=== PATIENT | female | born 1985 | race African-American/Black ===

== ENCOUNTER 2016-06-16 20:29 | Emergency (ER) | payer MEDICAID, OTHER ==
[~2016-06-16] VITALS: Ht 167.6 cm; Wt 56.7 kg
[2016-06-16 20:30] VITALS: BP 116/58; PULSE 80; RESP 18; TEMP 99.3; O2SAT 99
--- NOTE | 2016-06-16 21:08 | NUR ---
Placed in room 07 . Placed on nurse monitoring, blood pressure machine and pulse oximeter. To gown for exam. Side rails up. Report given to LAYA Almanza.
--- NOTE | 2016-06-16 21:16 | NUR ---
Patient to ER C/O lower abdominopelvic area pain and cramping all day with vaginal bleeding. Patient states that she works in a [employer] and she has been lifting heavy items. States she saturates 1 pad / hour and the drainage is very watery. AAOx4, unlabored rbeathing, no signs of acute distress.
--- NOTE | 2016-06-16 21:29 | NUR ---
ER MD Manrique at bedside for evaluation
--- NOTE | 2016-06-16 21:41 | NUR ---
Pelvic exam performed by ER MD Manrique with Cami ASIF at bedside for entire examination. Product of conception removed from vaginal canal and sent to pathology. Blood succtioned amount 200ml. Patient tolerated procedure well. Patient assisted to position of comfort after examination.
[2016-06-16] MEDS ORDERED: NACL 0.9% 1,000 ML IV ONE (21:47)
--- NOTE | 2016-06-16 22:10 | NUR ---
# 20 gauge angiocath placed to left ac. Use of asceptic technique. Opsite placed over site. Blood return noted. Blood for lab drawn from site. Flushed with 10 cc of normal saline. No evidence of infiltration noted. Patient tolerated well.
[2016-06-16] MEDS ORDERED: KETOROLAC TROMETHAMINE 15 MG VIAL IVP ONE (22:15)
[2016-06-16 22:32] LABS: BILIRUBIN,URINE NEGATIVE (NEGATIVE); BLOOD, URINE 3+ (NEGATIVE); CLARITY/URINE HAZY (CLEAR); COLOR,URINE YELLOW (YELLOW); GLUCOSE,URINE NEGATIVE (NEGATIVE); KETONES,URINE NEGATIVE (NEGATIVE); LEUKOCYTE ESTERASE ,URINE NEGATIVE (NEGATIVE); NITRITE, URINE NEGATIVE (NEGATIVE); PH,URINE 7.5 (5.0-8.0); PROTEIN URINE NEGATIVE (NEGATIVE); UROBILINOGEN,URINE 0.2 (0.2-1.0)
[2016-06-16 22:41] LABS: BASOPHILS % (AUTO) 0.3 % (0.0-2.0); EOSINOPHILS % (AUTO) 0.3 % (0.0-4.0); HEMATOCRIT 35.8 % (36-48); HEMOGLOBIN 12.2 g/dL (12.0-16.0); LYMPHOCYTES # (AUTO) 1.6 K/uL (1.0-5.5); LYMPHOCYTES % (AUTO) 10.4 % (20.5-51.5); MEAN CORPUSCULAR HEMOGLOBIN 27 pg (27-31); MEAN CORPUSCULAR HGB CONC 34 % (32-36); MEAN CORPUSCULAR VOLUME 80 fL (79.0-98.0); MONOCYTES # (AUTO) 1.1 K/uL (0.0-1.0); MONOCYTES % (AUTO) 7.2 % (1.7-9.3); NEUTROPHILS # (AUTO) 12.9 K/uL (1.8-7.7); NEUTROPHILS % (AUTO) 81.8 % (40.0-70.0); PLATELET COUNT (AUTO) 162 K/uL (130-430); RED BLOOD CELL COUNT(AUTO) 4.47 MIL/uL (4.2-6.2); RED CELL DISTRIBUTION WIDTH 18.1 % (9.0-15.0); WHITE BLOOD COUNT (AUTO) 15.6 K/uL (4.8-10.8)
--- NOTE | 2016-06-16 22:42 | NUR ---
Patient off the unit via wheelchair for U/S
[2016-06-16 22:47] LABS: CALCIUM 8.8 mg/dL (8.4-11.0); CREATININE 0.77 mg/dL (0.55-1.30)
[2016-06-16 22:47] LABS: BACTERIA,URINE FEW /HPF (None Seen); RBC,URINE >100 /HPF (0-3); WBC,URINE 0-3 /HPF (0-3)
--- NOTE | 2016-06-16 23:24 | NUR ---
Patient states she feels much better, vaginal bleeding continues. Patient educated on home care.
[2016-06-17 00:38] VITALS: BP 114/52; PULSE 74; RESP 18; TEMP 98.2
--- NOTE | 2016-06-17 00:38 | NUR ---
Patient given written and verbal discharge instructions and verbalizes understanding. ER MD Manrique discussed with patient the results and treatment provided. Patient in stable condition. ID arm band removed. IV catheter removed intact and dressing applied, no active bleeding. Patient educated on pain management and to follow up with PMD. Pain Scale 0/10. Opportunity for questions provided and answered.
[2016-06-29 15:44] VITALS: O2SAT 99
== END 2016-06-17 00:38 | disposition home or self-care (01) ==
LOC: SED 20:29
DX: O46.91 Antepartum hemorrhage, unspecified, first trimester (principal); Z3A.01 Less than 8 weeks gestation of pregnancy
CPT/HCPCS: 36415; 76856; 80048; 81000; 81025; 84702; 85025; 86900; 86901; 88305; 96361; 96374; 99285; J1885; J7030

== ENCOUNTER 2016-06-22 11:39 | Inpatient (IN) | payer MEDICAID ==
[~2016-06-22] VITALS: Ht 167.6 cm; Wt 56.7 kg
[2016-06-22 12:02] VITALS: BP_SYST 112
--- NOTE | 2016-06-22 12:08 | NUR ---
Pt placed to ER waiting room in stable condition.
--- NOTE | 2016-06-22 12:50 | NUR ---
Pt in US from wait room.
--- NOTE | 2016-06-22 12:56 | NUR ---
Patient to ER bed 8 to gown for evaluation. Side rails up.Assumed care.
--- NOTE | 2016-06-22 12:57 | NUR ---
ER at bedside examining patient.
--- NOTE | 2016-06-22 13:00 | NUR ---
Pt presents to ED c/o pelvic pain w/ vag bleeding s/p DNC on 06/16/16.Pt h/o A3, Pt denies other med hx.
--- NOTE | 2016-06-22 13:26 | NUR ---
Pt to be admitted.
[2016-06-22] MEDS ORDERED: KETOROLAC TROMETHAMINE 30 MG VIAL IVP ONE (13:30)
[2016-06-22] MEDS ORDERED: NACL 0.9% 1,000 ML IV ONE (13:30)
[2016-06-22 13:37] LABS: BASOPHILS % (AUTO) 0.6 % (0.0-2.0); EOSINOPHILS # (AUTO) 0.1 K/uL (0.0-0.4); EOSINOPHILS % (AUTO) 1.8 % (0.0-4.0); HEMATOCRIT 34.6 % (36-48); HEMOGLOBIN 11.5 g/dL (12.0-16.0); LYMPHOCYTES # (AUTO) 1.9 K/uL (1.0-5.5); LYMPHOCYTES % (AUTO) 24.1 % (20.5-51.5); MEAN CORPUSCULAR HEMOGLOBIN 27 pg (27-31); MEAN CORPUSCULAR HGB CONC 33 % (32-36); MEAN CORPUSCULAR VOLUME 82 fL (79.0-98.0); MONOCYTES # (AUTO) 0.6 K/uL (0.0-1.0); MONOCYTES % (AUTO) 7.6 % (1.7-9.3); NEUTROPHILS # (AUTO) 5.1 K/uL (1.8-7.7); NEUTROPHILS % (AUTO) 65.9 % (40.0-70.0); PLATELET COUNT (AUTO) 164 K/uL (130-430); WHITE BLOOD COUNT (AUTO) 7.7 K/uL (4.8-10.8)
[2016-06-22 13:38] LABS: BILIRUBIN,URINE NEGATIVE (NEGATIVE); BLOOD, URINE 3+ (NEGATIVE); CLARITY/URINE CLEAR (CLEAR); COLOR,URINE YELLOW (YELLOW); GLUCOSE,URINE NEGATIVE (NEGATIVE); KETONES,URINE NEGATIVE (NEGATIVE); LEUKOCYTE ESTERASE ,URINE NEGATIVE (NEGATIVE); NITRITE, URINE NEGATIVE (NEGATIVE); PH,URINE 6.5 (5.0-8.0); PROTEIN URINE NEGATIVE (NEGATIVE); UROBILINOGEN,URINE 0.2 (0.2-1.0)
[2016-06-22 13:43] LABS: CALCIUM 8.5 mg/dL (8.4-11.0); CREATININE 0.65 mg/dL (0.55-1.30); POTASSIUM 3.8 mmol/L (3.5-5.1)
[2016-06-22 13:47] LABS: PROTHROMBIN TIME 10.8 SECS (9.5-12.5)
--- NOTE | 2016-06-22 13:50 | NUR ---
Pt tolerated IV start 18G RAC and medication.
[2016-06-22 13:58] LABS: BACTERIA,URINE FEW /HPF (None Seen); WBC,URINE 0-3 /HPF (0-3)
[2016-06-22 13:59] LABS: MUCUS,URINE 1+ /LPF (None Seen)
[2016-06-22] MEDS ORDERED: PROPOFOL 200MG/ 20ML VIAL (DIPRIVAN) IV ONE (14:00)
[2016-06-22] MEDS ORDERED: ONDANSETRON HCL 4 MG/2 ML VIAL ONE (14:00)
[2016-06-22] MEDS ORDERED: fentaNYL CITRATE/PF 100 MCG/2 ML AMP ONE (14:00)
[2016-06-22] MEDS ORDERED: OXYTOCIN 10 UNIT/ML VIAL ONE (14:00)
[2016-06-22] MEDS ORDERED: MEPERIDINE HCL/PF 100 MG/ML AMP ONE (14:00)
[2016-06-22] MEDS ORDERED: MIDAZOLAM HCL 5 MG/5 ML VIAL ONE (14:00)
[2016-06-22] MEDS ORDERED: SEVOFLURANE 15 MIN GAS INH ONE (14:00)
[2016-06-22 14:08] LABS: ALBUMIN 3.6 g/dL (3.4-4.8); TOTAL BILIRUBIN 0.5 mg/dL (0.0-1.0)
--- NOTE | 2016-06-22 14:30 | NUR ---
Pt ambulated to restroom w/o assist. Pt tolerated well. Pain resolving
--- NOTE | 2016-06-22 15:10 | NUR ---
Assumed patient care. patient in ER C/O continuous bleeding. AAOx4, unlabored breathing, no signs of acute distress. Vaginal bleeding post passing POC friday, states saturating one pad in couple hours.
--- NOTE | 2016-06-22 16:28 | NUR ---
Patient will be admitted to care of DR LEONEL Keller. Admitted to OR-SURGEY unit. Will go to room OR. Belongings list completed. Summary report printed. Report given to RN.
--- NOTE | 2016-06-22 16:31 | NUR ---
Awaiting for OR crew to pickle sorter patient for surgey
--- NOTE | 2016-06-22 16:42 | NUR ---
ER MD Villagomez at bedside discussing plan of care with patient
--- NOTE | 2016-06-22 17:07 | NUR ---
Admission MD changed to Dr MAYA.
[2016-06-22] MEDS ORDERED: MORPHINE 4 MG/ML INJ. SYRINGE IVP PRN (17:15)
--- NOTE | 2016-06-22 17:15 | NUR ---
Patient will be admitted to care of DR MAYA. Admitted to MS unit. Will go to room 108A. Belongings list completed. Summary report printed. Report given to LAYA.
--- NOTE | 2016-06-22 17:22 | NUR ---
Transfer to [facility]. IV present no sign or symptom of infiltration.
--- NOTE | 2016-06-22 17:35 | NUR ---
ADMISSION NOTE Received patient from ER via gurney. Patient admitted with diagnosis of incomplete . Patient is awake, alert, oriented X 4. Patient oriented to hospital room, call light, toileting, pain management and safety-teach back done. Patient informed that andrés will be her nurse and that their room number is 108-c. Personal belongings checked and Belongings List documented. Call light within reach.
[2016-06-22 17:46] VITALS: BP_SYST 129
--- NOTE | 2016-06-22 19:01 | NUR ---
Closing Note: Pt sitting semi-fowlers in bed. Pt denies pain at this time. Pt verbalizes vaginal bleeding with small clots at this time. IV intact and infusing fluids well to RUE. Call light in reach. No other needs noted at this time. Pt remains NPO and verbalizes understanding of need to remain NPO for possible procedure today. Endorse plan of care to NOC RN.
[2016-06-22 19:25] VITALS: BP_SYST 121
--- NOTE | 2016-06-22 19:25 | NUR ---
MD Matthews at bedside/PACU MD Matthews at bedside with pt at this time. Per MD Matthews, he requested that I enter a consent order for D&C. No consent signed. Pt taken to PACU by ADMINISTRATIVE CLERK and MD Matthews. Pt in stable condition at this time. VSS. IV intact. Will await pt's return from PACU.
[2016-06-22] MEDS ORDERED: D5LR 1,000 ML IV SCH (19:45)
[2016-06-22] MEDS ORDERED: LR 1,000 ML IV SCH (20:05)
[2016-06-22] MEDS ORDERED: MEPERIDINE HCL/PF 25 MG/ML DISP.SYRIN IVP PRN ×2 (20:15)
[2016-06-22] MEDS ORDERED: HYDROmorphone 1 MG INJ. 1 MG/ML AMPUL IVP PRN (20:15)
[2016-06-22] MEDS ORDERED: ONDANSETRON HCL 4 MG/2 ML VIAL IVP PRN (20:15)
[2016-06-22] MEDS ORDERED: KETOROLAC TROMETHAMINE 30 MG VIAL IVP PRN (20:15)
[2016-06-22] MEDS ORDERED: HYDROmorphone 2 MG/ML VIAL IVP PRN ×2 (20:15)
--- NOTE | 2016-06-22 21:01 | NUR ---
Received report from PACU Nurse Received report from PACU Nurse Nicole. Will wait for patient to come back.
--- NOTE | 2016-06-22 21:08 | NUR ---
Pt back from PACU Pt back from PACU at this time, A/Ox4 in stable condition. Pt is S/P D&C, light vaginal bleeding noted on milton pad. Pt denies any pain or abdominal pain. IV intact. VSS. Pt educated on Post op vital signs, and new orders discussed with pt. Informed pt that she is able to go home once she is stable, and pt stated that her is currently working and wont be able to pick her up unitl 0300 am tomorrow morning. Pain management education given, pt asked to call nurse if she needs pain management. All needs met at this time. Pt requested food, food provided (sandwich, jello and juice). Will continue to monitor.
[2016-06-22] MEDS ORDERED: OXYCODONE/ACETAMINOPHEN 5-325 TABLET PO PRN (21:30)
--- NOTE | 2016-06-22 23:15 | NUR ---
PAIN MEDICATION NOTE SCANNED MEDICATION, BUT DID NOT SAVE, WILL NOT LET IT HAPPEN AGAIN.
[2016-06-22 23:51] VITALS: BP_SYST 98
--- NOTE | 2016-06-23 00:30 | NUR ---
PATIENT RESTING: Patient resting quietly. No acute distress noted. Vital signs within normal range. Call light in reach. Will continue to monitor.
[2016-06-23 02:43] VITALS: BP_SYST 98
[2016-06-23] MEDS ORDERED: OXYC-130 PO (02:48)
--- NOTE | 2016-06-23 03:00 | NUR ---
Rounds Pt resting at this time, easily arousable. Pt stated will be picking her up in about an hour. Discharge paperwork pending. Pt denies any pain or discomfort at this time. Call light in hand. Will continue to monitor.
[2016-06-23 03:51] VITALS: BP_SYST 98
--- NOTE | 2016-06-23 04:52 | NUR ---
D/C Patient Patient given medication reconciliation form and transition care instructions. Informed patient nothing in vagina per MD instructions, and MD Absi contact information provided and discussed with pt. Exit Care provided. Patient verbalized understanding. MD discussed with patient the results and treatment provided. Ambulatory with steady gait for discharge to home. Patient in stable condition, ID band removed. IV catheter removed, intact and dressing applied, no active bleeding. Rx of Percocet 5-325mg ordered and prescription given. Patient educated on pain management. All belongings sent with patient.
== END 2016-06-23 04:55 | disposition home or self-care (01) | DRG 544 ==
LOC: SED 11:39 → SDS 16:29 → SMU 17:08
PROC: 10D17ZZ Extraction of Products of Conception, Retained, Via Natural or Artificial Opening (ICD-10-PCS; principal; 2016-06-22 20:00)
DX: O03.4 Incomplete spontaneous abortion without complication (principal); Z90.49 Acquired absence of other specified parts of digestive tract; Z3A.01 Less than 8 weeks gestation of pregnancy
CPT/HCPCS: 36415; 76830-TC; 76857; 80053; 81000-TC; 84702-TC; 85025; 85610-TC; 85730-TC; 86886; 86900; 86901; 87081; 88305; 96361; 96374; 99285; J1885; J2175; J2250; J2270; J2405; J2590; J2704; J3010; J7030; J7120

== ENCOUNTER 2017-07-09 23:57 | Emergency (ER) | payer MEDICAID ==
[~2017-07-09] VITALS: Ht 167.6 cm; Wt 53.1 kg
[~2017-07-09 23:57] MED LIST: OXYC-130 PO
[2017-07-10 00:05] VITALS: BP_SYST 115
[2017-07-10 00:49] VITALS: BP_SYST 118
== END 2017-07-10 00:49 | disposition home or self-care (01) ==
LOC: SED 23:57
DX: J40 Bronchitis, not specified as acute or chronic (principal); E03.9 Hypothyroidism, unspecified; Z88.5 Allergy status to narcotic agent; Z88.6 Allergy status to analgesic agent
CPT/HCPCS: 71046-TC; 81025; 99284

== ENCOUNTER 2017-09-27 03:31 | Emergency (ER) | payer SELFPAY ==
[~2017-09-27] VITALS: Ht 165.1 cm; Wt 49.9 kg
[2017-09-27 03:35] VITALS: BP_SYST 115
--- NOTE | 2017-09-27 03:35 | NUR ---
Patient to ER bed 7 to gown for evaluation. Side rails up.
--- NOTE | 2017-09-27 03:36 | NUR ---
Patient presented to ED c/o of nausea and lightheadedness. Pt A/O x 4. Pt VSS. Pt states she found out she was a couple of days ago. Pt denies fever. No SOB or acute distress noted. Will continue to monitor.
[2017-09-27 04:33] LABS: BILIRUBIN,URINE NEGATIVE (NEGATIVE); BLOOD, URINE NEGATIVE (NEGATIVE); CLARITY/URINE CLEAR (CLEAR); COLOR,URINE YELLOW (YELLOW); GLUCOSE,URINE NEGATIVE (NEGATIVE); KETONES,URINE NEGATIVE (NEGATIVE); LEUKOCYTE ESTERASE ,URINE NEGATIVE (NEGATIVE); NITRITE, URINE NEGATIVE (NEGATIVE); PH,URINE 5.5 (5.0-8.0); PROTEIN URINE NEGATIVE (NEGATIVE); UROBILINOGEN,URINE 0.2 (0.2-1.0)
[2017-09-27] MEDS ORDERED: ONDANSETRON 4 MG ODT TAB PO ONE (04:45)
--- NOTE | 2017-09-27 04:53 | NUR ---
ER Dr. Carrillo at bedside examining patient.
[2017-09-27 05:08] VITALS: BP_SYST 121
--- NOTE | 2017-09-27 05:08 | NUR ---
Patient given written and verbal discharge instructions and verbalizes understanding. ER MD discussed with patient the results and treatment provided. Patient in stable condition. ID arm band removed. Rx of Zofran given. Patient educated on pain management and to follow up with PMD. Opportunity for questions provided and answered. Medication side effect fact sheet provided.
== END 2017-09-27 05:08 | disposition home or self-care (01) ==
LOC: SED 03:31
DX: O26.891 Other specified pregnancy related conditions, first trimester (principal); R11.0 Nausea; R10.30 Lower abdominal pain, unspecified; E03.9 Hypothyroidism, unspecified; Z3A.01 Less than 8 weeks gestation of pregnancy; Z90.49 Acquired absence of other specified parts of digestive tract; Z88.6 Allergy status to analgesic agent; Z88.5 Allergy status to narcotic agent
CPT/HCPCS: 81003; 99283; Q0162

== ENCOUNTER 2019-03-23 11:07 | Emergency (ER) | payer MEDICAID ==
[~2019-03-23] VITALS: Ht 165.1 cm; Wt 60.3 kg
[2019-03-23 11:25] VITALS: BP_SYST 119
--- NOTE | 2019-03-23 11:42 | NUR ---
Patient to ER bed 7 to gown for evaluation. Side rails up.
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
[2019-03-23] MEDS ORDERED: KETOROLAC TROMETHAMINE 60 MG/2 ML VIAL IM ONE (12:30)
--- NOTE | 2019-03-23 12:45 | NUR ---
ER Dr. Conway at bedside examining patient.
[2019-03-23 13:39] VITALS: BP_SYST 110
--- NOTE | 2019-03-23 13:39 | NUR ---
Patient given written and verbal discharge instructions and verbalizes understanding. ER MD discussed with patient the results and treatment provided. Patient in stable condition. ID arm band removed. Rx of naprox, tramadol given. Patient educated on pain management and to follow up with PMD. Pain Scale 0/10. Opportunity for questions provided and answered. Medication side effect fact sheet provided.
== END 2019-03-23 13:39 | disposition home or self-care (01) ==
LOC: SED 11:07
DX: M54.31 Sciatica, right side (principal); E03.9 Hypothyroidism, unspecified; Z88.5 Allergy status to narcotic agent; Z79.899 Other long term (current) drug therapy
CPT/HCPCS: 72170; 73502; 81025; 96372; 99283; J1885

== ENCOUNTER 2019-06-14 12:16 | Emergency (ER) | payer MEDICAID ==
[~2019-06-14] VITALS: Ht 165.1 cm; Wt 59.0 kg
[2019-06-14 12:37] VITALS: BP_SYST 115
--- NOTE | 2019-06-14 12:47 | NUR ---
Patient triaged and placed in waiting room. VSS and patient appears in no acute distress at this time. Accompanied by SELF, awaiting available bed, and MD notified of need for MSE.
--- NOTE | 2019-06-14 13:17 | NUR ---
Patient to ER bed 06 to gown for evaluation. Side rails up.
--- NOTE | 2019-06-14 13:19 | NUR ---
Patient arrived in the ED c/o left eye twitching that started 2 months ago. Denied any chest pain or shortness of breath. Denied any fevers, nausea, vomiting, or chills. Patient is alert and oriented x4, respirations even and unlabored, speaking in full sentences, ambulating with a steady gait. VSS, pain level 6/10. Informed of wait time. Instructed to notify ED staff for any changes in condition or worsening of symptoms. Patient verbalized understanding.
--- NOTE | 2019-06-14 13:26 | NUR ---
ER VICKIE Petersen at bedside examining patient.
[2019-06-14 13:46] LABS: BASOPHILS % (AUTO) 0.4 % (0.0-2.0); EOSINOPHILS % (AUTO) 0.6 % (0.0-4.0); HEMATOCRIT 40.1 % (36-48); HEMOGLOBIN 13.1 g/dL (12.0-16.0); LYMPHOCYTES # (AUTO) 1.6 K/uL (1.0-5.5); MEAN CORPUSCULAR HEMOGLOBIN 30 pg (27-31); MEAN CORPUSCULAR HGB CONC 33 % (32-36); MEAN CORPUSCULAR VOLUME 91 fL (79.0-98.0); MONOCYTES # (AUTO) 0.7 K/uL (0.0-1.0); MONOCYTES % (AUTO) 9.3 % (1.7-9.3); NEUTROPHILS # (AUTO) 4.8 K/uL (1.8-7.7); NEUTROPHILS % (AUTO) 66.7 % (40.0-70.0); PLATELET COUNT (AUTO) 187 K/uL (130-430); RED BLOOD CELL COUNT(AUTO) 4.39 MIL/uL (4.2-6.2); WHITE BLOOD COUNT (AUTO) 7.2 K/uL (4.8-10.8)
--- NOTE | 2019-06-14 13:47 | NUR ---
fuel quality tech at bedside collecting blood specimen as ordered by Dr. Hobson. Patient tolerated the procedure well.
[2019-06-14 13:55] LABS: CALCIUM 8.6 mg/dL (8.4-11.0); CREATININE 0.71 mg/dL (0.55-1.30)
--- NOTE | 2019-06-14 14:30 | NUR ---
Patient given written and verbal discharge instructions and verbalizes understanding. ER MD discussed with patient the results and treatment provided. Patient in stable condition. ID arm band removed. Rx of MVI given. Patient educated on pain management and to follow up with PMD. Pain Scale 0/10. Opportunity for questions provided and answered. Medication side effect fact sheet provided.
[2019-06-14 14:45] VITALS: BP_SYST 115
== END 2019-06-14 14:45 | disposition home or self-care (01) ==
LOC: SED 12:16
DX: G24.5 Blepharospasm (principal); R03.0 Elevated blood-pressure reading, without diagnosis of hypertension; E03.9 Hypothyroidism, unspecified; Z86.2 Personal history of diseases of the blood and blood-forming organs and certain disorders involving the immune mechanism; Z88.6 Allergy status to analgesic agent; Z88.5 Allergy status to narcotic agent
CPT/HCPCS: 36415; 80048; 85025; 99283

== ENCOUNTER 2020-04-26 14:41 | Emergency (ER) | payer MEDICAID, SELFPAY ==
[~2020-04-26] VITALS: Ht 167.6 cm; Wt 53.5 kg
[2020-04-26 14:47] VITALS: BP_SYST 108
--- NOTE | 2020-04-26 14:50 | NUR ---
Patient triaged and placed in waiting room. VSS and patient appears in no acute distress at this time. Accompanied by self, awaiting available bed, and MD notified of need for MSE.
--- NOTE | 2020-04-26 14:52 | NUR ---
Pt brought by self, A&Ox4, pt presents to ER with N/V x 2 days, pt states she is 8 weeks , skin pink and warm, cap refill <3, respiration even and unlabored.
[2020-04-26 14:56] VITALS: BP_SYST 108
--- NOTE | 2020-04-26 15:01 | NUR ---
DR JERNIGAN OUTSIDE TO TENT FOR EVALUATION
[2020-04-26] MEDS ORDERED: ONDANSETRON 4 MG ODT TAB PO ONE (15:15)
[2020-04-26 15:31] LABS: BILIRUBIN,URINE NEGATIVE (NEGATIVE); BLOOD, URINE NEGATIVE (NEGATIVE); CLARITY/URINE CLEAR (CLEAR); COLOR,URINE YELLOW (YELLOW); GLUCOSE,URINE NEGATIVE (NEGATIVE); KETONES,URINE TRACE (NEGATIVE); LEUKOCYTE ESTERASE ,URINE NEGATIVE (NEGATIVE); NITRITE, URINE NEGATIVE (NEGATIVE); PH,URINE 7.5 (5.0-8.0); PROTEIN URINE NEGATIVE (NEGATIVE)
--- NOTE | 2020-04-26 16:01 | NUR ---
DR JERNIGAN OUT TO TENT TO SPEAK WITH PT
--- NOTE | 2020-04-26 16:37 | NUR ---
Patient given written and verbal discharge instructions and verbalizes understanding. ER MD discussed with patient the results and treatment provided. Patient in stable condition. ID arm band removed. Rx of MILK OF MAGNESIA, METAMUCIL, COMPAZINE, PYRIDOXINE given. Patient educated on pain management and to follow up with PMD. Pain Scale 0/10. Opportunity for questions provided and answered. Medication side effect fact sheet provided.
== END 2020-04-26 16:37 | disposition home or self-care (01) ==
LOC: SED 14:41
DX: O21.0 Mild hyperemesis gravidarum (principal); Z88.6 Allergy status to analgesic agent; Z3A.08 8 weeks gestation of pregnancy
CPT/HCPCS: 81003; 99283; Q0162

== ENCOUNTER 2020-06-01 16:43 | Emergency (ER) | payer MEDICAID, SELFPAY ==
[~2020-06-01] VITALS: Ht 167.6 cm; Wt 53.5 kg
[2020-06-01 16:43] VITALS: BP_SYST 116
[2020-06-01 17:27] LABS: BILIRUBIN,URINE NEGATIVE (NEGATIVE); BLOOD, URINE NEGATIVE (NEGATIVE); COLOR,URINE YELLOW (YELLOW); GLUCOSE,URINE NEGATIVE (NEGATIVE); KETONES,URINE NEGATIVE (NEGATIVE); LEUKOCYTE ESTERASE ,URINE NEGATIVE (NEGATIVE); NITRITE, URINE NEGATIVE (NEGATIVE); PROTEIN URINE NEGATIVE (NEGATIVE); UROBILINOGEN,URINE 0.2 (0.2-1.0)
[2020-06-01 17:28] LABS: CLARITY/URINE HAZY (CLEAR)
[2020-06-01 17:29] LABS: BASOPHILS # (AUTO) 0.1 K/uL (0.0-0.2); BASOPHILS % (AUTO) 0.6 % (0.0-2.0); EOSINOPHILS # (AUTO) 0.1 K/uL (0.0-0.4); EOSINOPHILS % (AUTO) 1.1 % (0.0-4.0); LYMPHOCYTES # (AUTO) 2.1 K/uL (1.0-5.5); MEAN CORPUSCULAR HEMOGLOBIN 30 pg (27-31); MEAN CORPUSCULAR HGB CONC 34 % (32-36); MEAN CORPUSCULAR VOLUME 89 fL (79.0-98.0); MONOCYTES # (AUTO) 0.9 K/uL (0.0-1.0); MONOCYTES % (AUTO) 9.1 % (1.7-9.3); NEUTROPHILS # (AUTO) 6.3 K/uL (1.8-7.7); NEUTROPHILS % (AUTO) 67.2 % (40.0-70.0); PLATELET COUNT (AUTO) 155 K/uL (130-430); RED BLOOD CELL COUNT(AUTO) 4.28 MIL/uL (4.2-6.2); RED CELL DISTRIBUTION WIDTH 13.9 % (9.0-15.0); WHITE BLOOD COUNT (AUTO) 9.3 K/uL (4.8-10.8)
[2020-06-01 17:50] LABS: BACTERIA,URINE MANY /HPF (None Seen); RBC,URINE 0-3 /HPF (0-3); WBC,URINE 0-3 /HPF (0-3)
[2020-06-01 17:50] LABS: CREATININE 0.74 mg/dL (0.55-1.30)
[2020-06-01 17:51] LABS: MUCUS,URINE 2+ /LPF (None Seen); URINE AMORPHOUS PHOSPHATES 1+ /HPF (None Seen)
[2020-06-01 18:26] LABS: ALBUMIN 3.3 g/dL (3.4-4.8); TOTAL BILIRUBIN 0.3 mg/dL (0.0-1.0)
[2020-06-01] MEDS ORDERED: ONDA-8 TL (18:53)
[2020-06-01] MEDS ORDERED: OMEP20TA20 PO (18:53)
[2020-06-01] MEDS ORDERED: DOCU250C71 PO (18:53)
[2020-06-01 19:12] VITALS: BP_SYST 116
== END 2020-06-01 19:12 | disposition home or self-care (01) ==
LOC: SED 16:43
DX: O99.611 Diseases of the digestive system complicating pregnancy, first trimester (principal); K59.00 Constipation, unspecified; Z86.2 Personal history of diseases of the blood and blood-forming organs and certain disorders involving the immune mechanism; Z79.899 Other long term (current) drug therapy; Z88.6 Allergy status to analgesic agent; Z3A.14 14 weeks gestation of pregnancy
CPT/HCPCS: 36415; 76700-TC; 80053; 81000-TC; 81025; 82150-TC; 83605; 83690-TC; 84702-TC; 85025; 87086; 99284

== ENCOUNTER 2020-06-29 11:39 | Emergency (ER) | payer MEDICAID ==
[~2020-06-29] VITALS: Ht 170.2 cm; Wt 56.7 kg
[2020-06-29 11:39] VITALS: BP_SYST 99
[~2020-06-29 11:39] MED LIST changes: +DOCU250C71 PO; +OMEP20TA20 PO; +ONDA-8 TL
[2020-06-29 12:35] LABS: BASOPHILS % (AUTO) 0.2 % (0.0-2.0); EOSINOPHILS # (AUTO) 0.1 K/uL (0.0-0.4); EOSINOPHILS % (AUTO) 1.3 % (0.0-4.0); HEMATOCRIT 34.5 % (36-48); HEMOGLOBIN 11.6 g/dL (12.0-16.0); LYMPHOCYTES # (AUTO) 1.7 K/uL (1.0-5.5); LYMPHOCYTES % (AUTO) 17.5 % (20.5-51.5); MEAN CORPUSCULAR HEMOGLOBIN 30 pg (27-31); MEAN CORPUSCULAR HGB CONC 34 % (32-36); MEAN CORPUSCULAR VOLUME 89 fL (79.0-98.0); MONOCYTES # (AUTO) 0.7 K/uL (0.0-1.0); MONOCYTES % (AUTO) 6.7 % (1.7-9.3); NEUTROPHILS # (AUTO) 7.4 K/uL (1.8-7.7); NEUTROPHILS % (AUTO) 74.3 % (40.0-70.0); PLATELET COUNT (AUTO) 156 K/uL (130-430); RED BLOOD CELL COUNT(AUTO) 3.87 MIL/uL (4.2-6.2); RED CELL DISTRIBUTION WIDTH 14.4 % (9.0-15.0)
[2020-06-29 12:40] LABS: ANION GAP 6 (5-15); CALCIUM 8.9 mg/dL (8.4-11.0); CHLORIDE 102 mmol/L (98-107); GLUCOSE 75 mg/dL (70-99); POTASSIUM 4.5 mmol/L (3.5-5.1); SODIUM SERUM 136 mmol/L (136-145); UREA NITROGEN, BLOOD 6 mg/dL (8-21)
[2020-06-29 12:41] LABS: GFR AFRICAN AMERICAN 148 mL/min (>90)
[2020-06-29 13:08] LABS: ALANINE AMINOTRANSFERASE 17 U/L (12-78); ALBUMIN 2.9 g/dL (3.4-4.8); ASPARTATE AMINOTRANSFERASE 13 U/L (10-37); BILIRUBIN,DIRECT < 0.1 mg/dL (0.0-0.3); HCG,QUANTITATIVE 30239 mIU/ML (0-6); LIPASE 65 U/L (73-393); TOTAL BILIRUBIN 0.3 mg/dL (0.0-1.0)
[2020-06-29 14:40] LABS: BILIRUBIN,URINE NEGATIVE (NEGATIVE); BLOOD, URINE NEGATIVE (NEGATIVE); COLOR,URINE YELLOW (YELLOW); GLUCOSE,URINE NEGATIVE (NEGATIVE); KETONES,URINE NEGATIVE (NEGATIVE); LEUKOCYTE ESTERASE ,URINE NEGATIVE (NEGATIVE); NITRITE, URINE NEGATIVE (NEGATIVE); PROTEIN URINE NEGATIVE (NEGATIVE); UROBILINOGEN,URINE 0.2 (0.2-1.0)
[2020-06-29 14:41] LABS: CLARITY/URINE SLIGHTLY HAZY (CLEAR)
[2020-06-29 15:30] VITALS: BP_SYST 111
== END 2020-06-29 15:32 | disposition home or self-care (01) ==
LOC: SED 11:39
DX: O26.892 Other specified pregnancy related conditions, second trimester (principal); R10.9 Unspecified abdominal pain; Z3A.17 17 weeks gestation of pregnancy
CPT/HCPCS: 36415; 76805-TC; 80048; 80076; 81003; 83690-TC; 84702-TC; 85025; 86886; 86900; 86901; 99284

== ENCOUNTER 2020-07-09 09:31 | Emergency (ER) | payer MEDICAID ==
[~2020-07-09] VITALS: Ht 165.1 cm; Wt 56.7 kg
[2020-07-09 09:47] VITALS: BP_SYST 116
[2020-07-09 10:12] VITALS: BP_SYST 116
== END 2020-07-09 10:12 | disposition home or self-care (01) ==
LOC: SED 09:31
DX: O36.8120 Decreased fetal movements, second trimester, not applicable or unspecified (principal); Z3A.19 19 weeks gestation of pregnancy
CPT/HCPCS: 99284

== ENCOUNTER 2020-07-27 11:30 | Emergency (ER) | payer MEDICAID ==
[~2020-07-27] VITALS: Ht 167.6 cm; Wt 54.9 kg
[2020-07-27 11:30] VITALS: BP_SYST 102
[2020-07-27] MEDS ORDERED: ACETAMINOPHEN 325 MG TABLET PO ONE (12:00)
[2020-07-27] MEDS ORDERED: METOCLOPRAMIDE HCL 10 MG TABLET PO ONE (12:00)
[2020-07-27 12:03] LABS: BILIRUBIN,URINE NEGATIVE (NEGATIVE); BLOOD, URINE NEGATIVE (NEGATIVE); CLARITY/URINE CLEAR (CLEAR); COLOR,URINE YELLOW (YELLOW); GLUCOSE,URINE NEGATIVE (NEGATIVE); KETONES,URINE TRACE (NEGATIVE); LEUKOCYTE ESTERASE ,URINE NEGATIVE (NEGATIVE); NITRITE, URINE NEGATIVE (NEGATIVE); PROTEIN URINE NEGATIVE (NEGATIVE)
[2020-07-27] MEDS ORDERED: DOCU-144 PO (12:24)
[2020-07-27] MEDS ORDERED: ACET325T PO (12:24)
== END 2020-07-27 12:32 | disposition home or self-care (01) ==
LOC: SED 11:30
DX: O26.892 Other specified pregnancy related conditions, second trimester (principal); R10.2 Pelvic and perineal pain; Z86.2 Personal history of diseases of the blood and blood-forming organs and certain disorders involving the immune mechanism; Z79.899 Other long term (current) drug therapy; Z88.6 Allergy status to analgesic agent; Z3A.20 20 weeks gestation of pregnancy
CPT/HCPCS: 81003; 99284; J8597

== ENCOUNTER 2020-07-30 00:25 | Observation (INO) | payer MEDICAID ==
[~2020-07-30 00:25] MED LIST changes: +ACET325T PO; +DOCU-144 PO
[2020-07-30 03:02] LABS: BASOPHILS % (AUTO) 0.2 % (0.0-2.0); EOSINOPHILS % (AUTO) 0.1 % (0.0-4.0); HEMATOCRIT 31.5 % (36-48); HEMOGLOBIN 10.6 g/dL (12.0-16.0); LYMPHOCYTES # (AUTO) 0.9 K/uL (1.0-5.5); LYMPHOCYTES % (AUTO) 6.1 % (20.5-51.5); MEAN CORPUSCULAR HEMOGLOBIN 31 pg (27-31); MEAN CORPUSCULAR HGB CONC 34 % (32-36); MEAN CORPUSCULAR VOLUME 92 fL (79.0-98.0); MONOCYTES # (AUTO) 0.8 K/uL (0.0-1.0); MONOCYTES % (AUTO) 5.4 % (1.7-9.3); NEUTROPHILS # (AUTO) 13.7 K/uL (1.8-7.7); NEUTROPHILS % (AUTO) 88.2 % (40.0-70.0); PLATELET COUNT (AUTO) 144 K/uL (130-430); RED BLOOD CELL COUNT(AUTO) 3.43 MIL/uL (4.2-6.2); RED CELL DISTRIBUTION WIDTH 14.3 % (9.0-15.0); WHITE BLOOD COUNT (AUTO) 15.6 K/uL (4.8-10.8)
== END 2020-07-30 05:00 | disposition home or self-care (01) ==
LOC: SPU 00:25
PROVIDERS: ADMIT Obstetrics & Gynecology; ATTEND Obstetrics & Gynecology
DX: O46.92 Antepartum hemorrhage, unspecified, second trimester (principal); Z3A.21 21 weeks gestation of pregnancy
CPT/HCPCS: 36415; 81002; 85025; 85384; 86886; 86900; 86901; G0378

== ENCOUNTER 2020-09-13 10:30 | Observation (INO) | payer MEDICAID ==
[~2020-09-13] VITALS: Ht 165.1 cm; Wt 61.2 kg
[2020-09-13] MEDS ORDERED: cefTRIAXone 1 GM IVPB PREMIX 50 ML IV ONE (11:15)
[2020-09-13] MEDS ORDERED: NACL 0.9% 1,000 ML IV ONE (11:15)
[2020-09-13 11:30] LABS: BASOPHILS % (AUTO) 0.1 % (0.0-2.0); EOSINOPHILS # (AUTO) 0.1 K/uL (0.0-0.4); EOSINOPHILS % (AUTO) 0.6 % (0.0-4.0); HEMATOCRIT 28.9 % (36-48); HEMOGLOBIN 9.7 g/dL (12.0-16.0); LYMPHOCYTES # (AUTO) 1.3 K/uL (1.0-5.5); LYMPHOCYTES % (AUTO) 15.2 % (20.5-51.5); MEAN CORPUSCULAR HEMOGLOBIN 31 pg (27-31); MEAN CORPUSCULAR HGB CONC 34 % (32-36); MEAN CORPUSCULAR VOLUME 92 fL (79.0-98.0); MONOCYTES # (AUTO) 0.5 K/uL (0.0-1.0); MONOCYTES % (AUTO) 5.5 % (1.7-9.3); NEUTROPHILS # (AUTO) 6.7 K/uL (1.8-7.7); NEUTROPHILS % (AUTO) 78.6 % (40.0-70.0); PLATELET COUNT (AUTO) 109 K/uL (130-430); RED BLOOD CELL COUNT(AUTO) 3.13 MIL/uL (4.2-6.2); WHITE BLOOD COUNT (AUTO) 8.5 K/uL (4.8-10.8)
[2020-09-13 11:40] LABS: CALCIUM 8.1 mg/dL (8.4-11.0); CREATININE 0.54 mg/dL (0.55-1.30)
[2020-09-13 11:46] LABS: ALBUMIN 2.4 g/dL (3.4-4.8); TOTAL BILIRUBIN 0.2 mg/dL (0.0-1.0)
[2020-09-13 11:52] LABS: BILIRUBIN,URINE NEGATIVE (NEGATIVE); BLOOD, URINE NEGATIVE (NEGATIVE); CLARITY/URINE CLEAR (CLEAR); COLOR,URINE YELLOW (YELLOW); GLUCOSE,URINE NEGATIVE (NEGATIVE); KETONES,URINE NEGATIVE (NEGATIVE); LEUKOCYTE ESTERASE ,URINE NEGATIVE (NEGATIVE); NITRITE, URINE NEGATIVE (NEGATIVE); PROTEIN URINE NEGATIVE (NEGATIVE); UROBILINOGEN,URINE 0.2 (0.2-1.0)
== END 2020-09-13 13:10 | disposition home or self-care (01) ==
LOC: SPU 10:30
PROVIDERS: ADMIT Obstetrics & Gynecology; ATTEND Obstetrics & Gynecology
DX: O26.892 Other specified pregnancy related conditions, second trimester (principal); R10.9 Unspecified abdominal pain; Z3A.27 27 weeks gestation of pregnancy
CPT/HCPCS: 36415; 76805; 80053; 81003; 85025; 96365; G0378; J0696

== ENCOUNTER 2021-07-17 12:05 | Emergency (ER) | payer MEDICAID ==
[~2021-07-17] VITALS: Ht 167.6 cm; Wt 54.4 kg
--- NOTE | 2021-07-17 12:15 | NUR ---
Pt walked ambulatory to room 8 and triaged.
--- NOTE | 2021-07-17 12:20 | NUR ---
Patient to ER bed 8 for evaluation. Side rails up. Report given to Kathryn ASIF.
[2021-07-17 12:22] VITALS: BP_SYST 117
--- NOTE | 2021-07-17 12:22 | NUR ---
Pt came in from home reporting N/V as well as poor PO intake since Friday. Reports has not even been able to hold water down and feels these sx are from food poisoning. Denies diarrhea. PMH anemia and hypothyroidism. Pt alert and oriented x 3. Awaiting MD matias.
--- NOTE | 2021-07-17 12:29 | NUR ---
Dr Conway at bedside examining patient
[2021-07-17] MEDS ORDERED: ONDANSETRON HCL 4 MG/2 ML VIAL IVP ONE (12:30)
[2021-07-17] MEDS ORDERED: NACL 0.9% 1,000 ML IV ONE (12:30)
[2021-07-17] MEDS ORDERED: KETOROLAC TROMETHAMINE 30 MG VIAL IVP ONE (12:30)
--- NOTE | 2021-07-17 12:38 | NUR ---
pt presented to er with complaint of nausea, vomiting and lower back pain 12/15. pt came from home and has been experience the previous mentioned symptoms since friday evening after dinner. patient has not been able to eat since friday. patient is able to ambulate to bathroom but did mentioned she felt dizzy. adv pt not to leave bed without presence of nurse to help ambulate. pt resting comfortably in bed, bed lowered and locked and rails up
[2021-07-17 12:44] LABS: BASOPHILS % (AUTO) 0.1 % (0.0-2.0); EOSINOPHILS % (AUTO) 0.1 % (0.0-4.0); HEMOGLOBIN 12.2 g/dL (12.0-16.0); LYMPHOCYTES # (AUTO) 0.6 K/uL (1.0-5.5); LYMPHOCYTES % (AUTO) 4.9 % (20.5-51.5); MEAN CORPUSCULAR HEMOGLOBIN 28 pg (27-31); MEAN CORPUSCULAR HGB CONC 33 % (32-36); MEAN CORPUSCULAR VOLUME 85 fL (79.0-98.0); MONOCYTES # (AUTO) 1.5 K/uL (0.0-1.0); MONOCYTES % (AUTO) 12.7 % (1.7-9.3); NEUTROPHILS # (AUTO) 9.6 K/uL (1.8-7.7); NEUTROPHILS % (AUTO) 82.2 % (40.0-70.0); PLATELET COUNT (AUTO) 123 K/uL (130-430); RED BLOOD CELL COUNT(AUTO) 4.35 MIL/uL (4.2-6.2); RED CELL DISTRIBUTION WIDTH 14.1 % (9.0-15.0); WHITE BLOOD COUNT (AUTO) 11.7 K/uL (4.8-10.8)
[2021-07-17 12:57] LABS: CALCIUM 8.2 mg/dL (8.4-11.0); CREATININE 0.94 mg/dL (0.55-1.30); POTASSIUM 3.5 mmol/L (3.5-5.1)
[2021-07-17 13:01] LABS: ALBUMIN 3.2 g/dL (3.4-4.8); TOTAL BILIRUBIN 1.1 mg/dL (0.0-1.0)
[2021-07-17 13:08] LABS: BILIRUBIN,URINE 1+ (NEGATIVE); BLOOD, URINE 2+ (NEGATIVE); CLARITY/URINE SL CLOUDY (CLEAR); COLOR,URINE YELLOW (YELLOW); GLUCOSE,URINE NEGATIVE (NEGATIVE); KETONES,URINE 2+ (NEGATIVE); LEUKOCYTE ESTERASE ,URINE TRACE (NEGATIVE); NITRITE, URINE NEGATIVE (NEGATIVE); PH,URINE 6.5 (5.0-8.0); PROTEIN URINE 2+ (NEGATIVE)
[2021-07-17 13:19] LABS: BARBITURATE, URINE NEGATIVE (NEG <=200); BENZODIAZEPINE, URINE NEGATIVE (NEG <=150); CANNABINOID, URINE NEGATIVE (NEG <=50); COCAINE, URINE NEGATIVE (NEG <=150); METHAMPHETAMINES SCREEN,URINE NEGATIVE (NEG <=500); OPIATE, URINE NEGATIVE (NEG <=100); PHENCYCLIDINE SCREEN,URINE NEGATIVE (NEG <=25); UR TRICYCLIC ANTIDEPRESSANTS NEGATIVE (NEG <=300); URINE AMPHETAMINE NEGATIVE (NEG <=500); URINE METHADONE NEGATIVE (NEG <=200); URINE OXYCODONE SCREEN NEGATIVE (NEG <=100); URINE PROPOXYPHENE SCREEN NEGATIVE (NEG <=300)
[2021-07-17 13:27] LABS: BACTERIA,URINE MODERATE /HPF (None Seen)
[2021-07-17] MEDS ORDERED: SULF1TAB47 PO (13:33)
[2021-07-17] MEDS ORDERED: ONDA-8 TL (13:33)
[2021-07-17 14:25] VITALS: BP_SYST 120
--- NOTE | 2021-07-17 14:26 | NUR ---
Patient given written and verbal discharge instructions and verbalizes understanding. ER discussed with patient the results and treatment provided. Patient in stable condition. ID arm band removed. IV catheter removed intact and dressing applied, no active bleeding. Rx of Zofran and Bactrim given. Patient educated on pain management and to follow up with PMD. Pain Scale 0. Opportunity for questions provided and answered. Medication side effect fact sheet provided.
== END 2021-07-17 14:25 | disposition home or self-care (01) ==
LOC: SED 12:05
DX: K29.00 Acute gastritis without bleeding (principal); E03.9 Hypothyroidism, unspecified; Z88.6 Allergy status to analgesic agent; Z88.5 Allergy status to narcotic agent
CPT/HCPCS: 36415; 80053; 80307; 81000; 81025; 83690; 85025; 87086; 96361; 96374; 96375; 99284; J1885; J2405; J7030

== ENCOUNTER 2021-10-19 11:02 | Emergency (ER) | payer MEDICAID ==
[~2021-10-19] VITALS: Ht 167.6 cm; Wt 49.9 kg
[~2021-10-19 11:02] MED LIST changes: +SULF1TAB47 PO
[2021-10-19 11:20] VITALS: BP_SYST 140
--- NOTE | 2021-10-19 11:28 | NUR ---
Patient to ER bed 03 for evaluation. Side rails up. Report given to Melissa.
--- NOTE | 2021-10-19 11:29 | NUR ---
with C/C patient states she has had IUD x 1 year and now has left sided flank pain. She also states she has had spotting x 1 week with N/V.
--- NOTE | 2021-10-19 11:32 | NUR ---
Urine Sample Collected
--- NOTE | 2021-10-19 11:51 | NUR ---
Urine Dip (NEG)
--- NOTE | 2021-10-19 12:35 | NUR ---
Patient undressed prepared for pelvic exam
--- NOTE | 2021-10-19 13:00 | NUR ---
Patient remains stable in no acute distress
[2021-10-19 14:09] LABS: BILIRUBIN,URINE NEGATIVE (NEGATIVE); BLOOD, URINE NEGATIVE (NEGATIVE); CLARITY/URINE CLEAR (CLEAR); COLOR,URINE YELLOW (YELLOW); GLUCOSE,URINE NEGATIVE (NEGATIVE); KETONES,URINE NEGATIVE (NEGATIVE); LEUKOCYTE ESTERASE ,URINE NEGATIVE (NEGATIVE); NITRITE, URINE NEGATIVE (NEGATIVE); PH,URINE 8.5 (5.0-8.0); PROTEIN URINE NEGATIVE (NEGATIVE)
--- NOTE | 2021-10-19 14:11 | NUR ---
Chaperoned MD at bedside for pelvic exam, IUD removed.
[2021-10-19 14:34] VITALS: BP_SYST 140
--- NOTE | 2021-10-19 14:34 | NUR ---
Patient given written and verbal discharge instructions and verbalizes understanding. ER MD discussed with patient the results and treatment provided. Patient in stable condition. ID arm band removed. IV catheter removed intact and dressing applied, no active bleeding. Rx of given. Patient educated on pain management and to follow up with PMD. Pain Scale 0/10 Opportunity for questions provided and answered. Medication side effect fact sheet provided.
== END 2021-10-19 14:34 | disposition home or self-care (01) ==
LOC: SED 11:02
DX: T83.32XA Displacement of intrauterine contraceptive device, initial encounter (principal); R10.2 Pelvic and perineal pain; J45.909 Unspecified asthma, uncomplicated; Z88.5 Allergy status to narcotic agent; Z88.6 Allergy status to analgesic agent; Z79.899 Other long term (current) drug therapy
CPT/HCPCS: 74018; 81003; 99284

== ENCOUNTER 2022-05-08 12:57 | Emergency (ER) | payer MEDICAID ==
[~2022-05-08] VITALS: Ht 167.6 cm; Wt 54.4 kg
[2022-05-08 13:04] VITALS: BP_SYST 114
--- NOTE | 2022-05-08 13:08 | NUR ---
Patient triaged and placed in waiting room. VSS and patient appears in no acute distress at this time. Accompanied by SELF, awaiting available bed, and MD notified of need for MSE.
== END 2022-05-08 15:06 | disposition left against medical advice (07) ==
LOC: SED 12:57
DX: R20.2 Paresthesia of skin (principal); R51.9 Headache, unspecified; J45.909 Unspecified asthma, uncomplicated; Z88.5 Allergy status to narcotic agent; Z88.6 Allergy status to analgesic agent; Z79.899 Other long term (current) drug therapy
CPT/HCPCS: 99281

== ENCOUNTER 2023-01-24 20:57 | Emergency (ER) | payer BC, MEDICAID ==
[~2023-01-24] VITALS: Ht 167.6 cm; Wt 55.3 kg
[2023-01-24 21:10] VITALS: BP_SYST 117; PULSE 87; RESP 16; TEMP 97.9; O2SAT 99
[2023-01-24 21:38] LABS: BASOPHILS % (AUTO) 0.5 % (0.0-2.0); EOSINOPHILS # (AUTO) 0.1 K/uL (0.0-0.4); EOSINOPHILS % (AUTO) 1.8 % (0.0-4.0); HEMATOCRIT 41.9 % (36-48); HEMOGLOBIN 13.9 g/dL (12.0-16.0); LYMPHOCYTES # (AUTO) 1.2 K/uL (1.0-5.5); LYMPHOCYTES % (AUTO) 20.7 % (20.5-51.5); MEAN CORPUSCULAR HEMOGLOBIN 29 pg (27-31); MEAN CORPUSCULAR HGB CONC 33 % (32-36); MEAN CORPUSCULAR VOLUME 87 fL (79.0-98.0); MONOCYTES # (AUTO) 0.6 K/uL (0.0-1.0); MONOCYTES % (AUTO) 10.4 % (1.7-9.3); NEUTROPHILS # (AUTO) 3.8 K/uL (1.8-7.7); NEUTROPHILS % (AUTO) 66.6 % (40.0-70.0); PLATELET COUNT (AUTO) 168 K/uL (130-430); RED BLOOD CELL COUNT(AUTO) 4.81 MIL/uL (4.2-6.2); WHITE BLOOD COUNT (AUTO) 5.7 K/uL (4.8-10.8)
[2023-01-24 21:51] LABS: ALBUMIN 3.4 g/dL (3.4-4.8); CALCIUM 8.9 mg/dL (8.4-11.0); CREATININE 0.81 mg/dL (0.55-1.30); POTASSIUM 3.3 mmol/L (3.5-5.1); TOTAL BILIRUBIN 0.4 mg/dL (0.0-1.0); TOTAL PROTEIN, SERUM 6.9 g/dL (6.4-8.3)
[2023-01-24 23:00] LABS: BILIRUBIN,URINE 1+ (NEGATIVE); BLOOD, URINE NEGATIVE (NEGATIVE); COLOR,URINE YELLOW (YELLOW); GLUCOSE,URINE NEGATIVE (NEGATIVE); KETONES,URINE 1+ (NEGATIVE); LEUKOCYTE ESTERASE ,URINE NEGATIVE (NEGATIVE); NITRITE, URINE NEGATIVE (NEGATIVE); PROTEIN URINE NEGATIVE (NEGATIVE)
[2023-01-24 23:06] LABS: CLARITY/URINE SLIGHTLY HAZY (CLEAR)
[2023-01-25] MEDS ORDERED: metroNIDAZOLE 500 mg/NS 100 ML IV ONE (00:30)
[2023-01-25] MEDS ORDERED: MORPHINE 4 MG INJ. 4 MG/ML VIAL IVP ONE (01:30)
[2023-01-25 02:24] LABS: HCG,QUAL RESULT NEGATIVE (NEGATIVE)
[2023-01-25] MEDS ORDERED: CIPR500T5 PO (04:46)
[2023-01-25] MEDS ORDERED: ONDA-8 TL (04:46)
[2023-01-25 04:55] VITALS: BP_SYST 100; PULSE 84; RESP 17; TEMP 97.4; O2SAT 99
== END 2023-01-25 04:55 | disposition home or self-care (01) ==
LOC: SED 20:57
DX: A09 Infectious gastroenteritis and colitis, unspecified (principal); R10.84 Generalized abdominal pain; R11.10 Vomiting, unspecified; J45.909 Unspecified asthma, uncomplicated; Z88.5 Allergy status to narcotic agent; Z88.6 Allergy status to analgesic agent; Z79.899 Other long term (current) drug therapy
CPT/HCPCS: 99285; 80053; 81001; 84703; 85025; 87040; 36415; 81025; 83605; 81003; 81000; 74176; 96365; 96375; 76376; 81015; J3490; J2270

== ENCOUNTER 2023-09-05 06:32 | Emergency (ER) | payer BC ==
[~2023-09-05] VITALS: Ht 167.6 cm; Wt 54.4 kg
[~2023-09-05 06:32] MED LIST changes: +CIPR500T5 PO
[2023-09-05 06:39] VITALS: BP_SYST 94; PULSE 73; RESP 18; TEMP 97.8; O2SAT 98
[2023-09-05] MEDS ORDERED: AUG875 PO (06:44)
[2023-09-05 06:50] VITALS: BP_SYST 94; PULSE 73; RESP 18; TEMP 97.8; O2SAT 98
== END 2023-09-05 06:50 | disposition home or self-care (01) ==
LOC: SED 06:32
DX: J02.9 Acute pharyngitis, unspecified (principal); J45.909 Unspecified asthma, uncomplicated; E03.9 Hypothyroidism, unspecified; Z88.6 Allergy status to analgesic agent; Z88.5 Allergy status to narcotic agent; Z79.899 Other long term (current) drug therapy; Z79.2 Long term (current) use of antibiotics
CPT/HCPCS: 99283

== ENCOUNTER 2023-09-29 12:51 | Emergency (ER) | payer OTHER, BC ==
[~2023-09-29] VITALS: Ht 167.6 cm; Wt 54.0 kg
[~2023-09-29 12:51] MED LIST changes: +AUG875 PO
[2023-09-29 12:58] VITALS: BP_SYST 133; PULSE 85; RESP 17; TEMP 98.2; O2SAT 98
[2023-09-29] MEDS ORDERED: IBUP-1969 PO (15:20)
[2023-09-29] MEDS ORDERED: ZAN4 PO (15:20)
[2023-09-29 15:46] VITALS: BP_SYST 133; PULSE 85; RESP 17; TEMP 98.2; O2SAT 98
== END 2023-09-29 15:43 | disposition home or self-care (01) ==
LOC: SED 12:51
DX: S16.1XXA Strain of muscle, fascia and tendon at neck level, initial encounter (principal); R07.89 Other chest pain; J45.909 Unspecified asthma, uncomplicated; E03.9 Hypothyroidism, unspecified; Z88.6 Allergy status to analgesic agent; Z88.5 Allergy status to narcotic agent; Z79.899 Other long term (current) drug therapy; Z79.2 Long term (current) use of antibiotics; V89.2XXA Person injured in unspecified motor-vehicle accident, traffic, initial encounter; Y93.89 Activity, other specified; Y92.89 Other specified places as the place of occurrence of the external cause; Y99.8 Other external cause status
CPT/HCPCS: 72050; 81025; 93005; 99283

== ENCOUNTER 2023-12-15 02:22 | Emergency (ER) | payer BC ==
[~2023-12-15] VITALS: Ht 167.6 cm; Wt 54.4 kg
[~2023-12-15 02:22] MED LIST changes: +IBUP-1969 PO; +ZAN4 PO
[2023-12-15 02:35] VITALS: BP_SYST 107; PULSE 90; RESP 17; TEMP 97.8; O2SAT 95
[2023-12-15] MEDS: ONDANSETRON 4 MG ODT TAB PO ONE (03:42)
[2023-12-15] MEDS: KETOROLAC TROMETHAMINE 60 MG/2 ML VIAL IM ONE (03:42)
[2023-12-15] MEDS ORDERED: VALA10002 PO (03:54)
[2023-12-15] MEDS ORDERED: MELO-89 PO (03:54)
[2023-12-15] MEDS ORDERED: PRED20TA PO (03:54)
[2023-12-15 04:11] VITALS: BP_SYST 110; PULSE 89; RESP 18; TEMP 98; O2SAT 97
== END 2023-12-15 04:10 | disposition home or self-care (01) ==
LOC: SED 02:22
DX: R51.9 Headache, unspecified (principal); B00.1 Herpesviral vesicular dermatitis; J45.909 Unspecified asthma, uncomplicated; E03.9 Hypothyroidism, unspecified; Z88.6 Allergy status to analgesic agent; Z88.5 Allergy status to narcotic agent; Z79.899 Other long term (current) drug therapy; Z79.2 Long term (current) use of antibiotics
CPT/HCPCS: 99283; 81025; 96372; Q0162; J1885